=== PATIENT | male | born 1990 | race Caucasian/White ===

== ENCOUNTER 2017-06-05 10:25 | Emergency (ER) | payer MEDICAID, SELFPAY ==
[~2017-06-05] VITALS: Ht 177.8 cm; Wt 81.8 kg
[2017-06-05] MEDS ORDERED: cefTRIAXone SOD 1 GM in D5W MINI-BAG PLUS 50 ML IV ONE (10:45)
[2017-06-05] MEDS ORDERED: KETOROLAC 30 MG/ML VIAL (J1885) IV ONE (11:00)
[2017-06-05 11:33] LABS: ALBUMIN 4.4 GM/DL (3.2-5.2); ALBUMIN/GLOBULIN RATIO 1.26 (1.00-1.93); ALKALINE PHOSPHATASE 71 U/L (45-117); ALT/SGPT 31 U/L (12-78); ANION GAP 6 MEQ/L (8-16); AST/SGOT 16 U/L (15-37); BILIRUBIN,TOTAL 0.9 MG/DL (0.2-1.0); BLOOD UREA NITROGEN 15 MG/DL (7-18); CALCIUM LEVEL 9.3 MG/DL (8.5-10.1); CARBON DIOXIDE LEVEL 32 MEQ/L (21-32); CHLORIDE LEVEL 100 MEQ/L (98-107); CREATININE FOR GFR 0.79 MG/DL (0.70-1.30); GLOMERULAR FILTRATION RATE > 60.0 (>60); GLUCOSE, FASTING 110 MG/DL (70-105); POTASSIUM SERUM 4.4 MEQ/L (3.5-5.1); SODIUM LEVEL 138 MEQ/L (136-145); TOTAL PROTEIN 7.9 GM/DL (6.4-8.2)
[2017-06-05 11:39] LABS: BASO % 0.3 % (0.0-1.0); EOS # 0.1 K/mm3 (0.0-0.50); EOS % 1.1 % (0.0-3.0); LARGE UNSTAINED CELL # 0.1 K/mm3 (0.0-0.4); LYMPH # 0.9 K/mm3 (1.5-6.5); LYMPH % 9.3 % (24.0-44.0); MONO # 0.5 K/mm3 (0.0-0.8); MONO % 5.3 % (0.0-5.0); NEUTROPHILS # 7.7 K/mm3 (1.8-7.7); NEUTROPHILS % 83.1 % (36.0-66.0); PLATELET COUNT, AUTOMATED 214 k/mm3 (150-450); RED CELL DISTRIBUTION WIDTH 13.1 % (11.5-14.5); WHITE BLOOD COUNT 9.3 K/mm3 (4.0-10.0)
--- NOTE | 2017-06-05 11:54 | REP ---
REASON: Swelling around the left mastoid region. COMPARISON: None. A limited neck CT of the soft tissues was obtained without contrast specifically over the mastoid regions. The technologist has placed a B.B. marker on the skin posterior to the left mastoid air cells. One marker has been placed above and the other marker has been placed below the area. Seen between the markers placed by the technologist, in the deep subcutaneous fat of the left posterolateral neck soft tissues, at the level of the dense, there is a tiny 8 mm size nodule. This is nonspecific. The mastoid air cells are clear. The imaged paranasal sinuses are clear. There is no bony abnormality. IMPRESSION: Tiny nodular density in the subcutaneous fat and the left posterior neck soft tissues of uncertain etiology as described above. Signed by Jfef Rivera DO 06/05/2017 12:07 P
[2017-06-05] MEDS ORDERED: AUGM875T28 PO (12:20)
[2017-06-05] MEDS ORDERED: IBUP80TA PO (12:20)
[2017-06-05 12:21] VITALS: BP 128/66
--- NOTE | 2017-06-05 14:27 | ED PDOC ---
Post-Departure [facility]-Up [facility] faxed formal report of ct max fac for fu Rafiq Sandhu MD Jun 05, 2017 14:27
== END 2017-06-05 12:28 | disposition home or self-care (01) ==
LOC: M ED 10:25
DX: R22.1 Localized swelling, mass and lump, neck (principal); H66.92 Otitis media, unspecified, left ear; F17.200 Nicotine dependence, unspecified, uncomplicated
CPT/HCPCS: 70486; 80053; 85025; 85652; 86140; 87040; 96365; 96375; 99283; J0696; J1885

== ENCOUNTER 2021-04-04 21:41 | Emergency (ER) | payer MEDICAID, SELFPAY ==
[~2021-04-04] VITALS: Ht 175.3 cm; Wt 86.4 kg
[~2021-04-04 21:41] MED LIST: AUGM875T28 PO; IBUP80TA PO
[2021-04-04 22:19] LABS: BASO % 0.4 % (0.0-1.0); EOS # 0.1 10^3/uL (0.0-0.5); EOS % 2.1 % (0.0-3.0); HEMOGLOBIN 12.4 g/dl (13.5-17.5); LYMPH # 1.3 10^3/uL (1.5-5.0); LYMPH % 21.9 % (24.0-44.0); MEAN CORPUSCULAR HGB CONC 32.6 g/dl (32.0-36.5); MEAN CORPUSCULAR VOLUME 91.8 fl (80.0-96.0); MONO # 0.3 10^3/uL (0.0-0.8); MONO % 5.8 % (2.0-8.0); NEUTROPHILS % 69.4 % (36.0-66.0); PLATELET COUNT, AUTOMATED 188 10^3/uL (150-450); RED BLOOD COUNT 4.14 10^6/uL (4.30-6.10); WHITE BLOOD COUNT 5.7 10^3/uL (4.0-10.0)
[2021-04-04] MEDS ORDERED: LORazepam 2 MG/ML VIAL IV STA (22:42)
[2021-04-04] MEDS ORDERED: NS 1,000 ML IV ONE (22:45)
[2021-04-04 22:57] LABS: ACETAMINOPHEN LEVEL 3.2 UG/ML (10.0-30.0); ALBUMIN 2.5 GM/DL (3.2-5.2); ALT/SGPT 19 U/L (12-78); BILIRUBIN,DIRECT 0.1 MG/DL (0.0-0.2); BILIRUBIN,TOTAL 0.3 MG/DL (0.2-1.0); BLOOD UREA NITROGEN 9 MG/DL (7-18); CALCIUM LEVEL 5.5 MG/DL (8.5-10.1); CARBON DIOXIDE LEVEL 19 MEQ/L (21-32); CHLORIDE LEVEL 119 MEQ/L (98-107); CPK CREATINE PHOSPHOKINASE 78 U/L (39-308); CREATININE FOR GFR 0.49 MG/DL (0.70-1.30); ETHYL ALCOHOL (ETHANOL) < 0.003 % (0.000-0.010); GLOMERULAR FILTRATION RATE > 60.0 (>60); GLUCOSE, FASTING 141 MG/DL (70-100); POTASSIUM SERUM 2.4 MEQ/L (3.5-5.1); SALICYLATE LEVEL < 1.7 MG/DL (5.0-30.0); SODIUM LEVEL 147 MEQ/L (136-145); TOTAL PROTEIN 4.7 GM/DL (6.4-8.2)
[2021-04-04] MEDS ORDERED: LORazepam 2 MG/ML VIAL As Ordered ONE (23:08)
[2021-04-04 23:30] VITALS: BP 145/92
--- NOTE | 2021-04-05 08:55 | ECGEPIP ---
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
== END 2021-04-05 00:12 | disposition home or self-care (01) ==
LOC: M ED 21:41
DX: F19.10 Other psychoactive substance abuse, uncomplicated (principal); T50.901A Poisoning by unspecified drugs, medicaments and biological substances, accidental (unintentional), initial encounter; R00.0 Tachycardia, unspecified; F17.200 Nicotine dependence, unspecified, uncomplicated
CPT/HCPCS: 36415; 80047; 80048; 80076; 80143; 82077; 82550; 84443; 85025; 93005; 93041; 94760; 96361; 96374; 99285; J2060